=== PATIENT | male | born 1965 | race Caucasian/White ===

== ENCOUNTER 2020-02-17 23:35 | Emergency (ER) | payer MEDICAID ==
[~2020-02-17] VITALS: Ht 188 cm; Wt 113.4 kg
--- NOTE | 2020-02-17 23:39 | NUR ---
PT [facility] BLS. TAKEN TO BED 3
[2020-02-17 23:46] VITALS: BP 124/70
--- NOTE | 2020-02-17 23:51 | NUR ---
Dr. Tsang examining patient.
--- NOTE | 2020-02-17 23:55 | NUR ---
53 Y/O MALE BIBA FOR C/O BILAT LEG FOOTE "SINCE 4PM" PT STATES PAIN 01/20. PT STATES "RAN OUT OF PAIN MEDICATION." SWELLING/EDEMA NOTED TO BILAT LEGS. MEDHX: CVA, CO, DIABETES. NKA
--- NOTE | 2020-02-18 00:05 | NUR ---
LAB AT BEDSIDE
[2020-02-18 00:19] LABS: EOSINOPHILS # (AUTO) 0.1 K/uL (0-0.4); EOSINOPHILS % (AUTO) 2.6 % (0.0-4.0); HEMATOCRIT 38.7 % (36-52); LYMPHOCYTES # (AUTO) 1.7 K/uL (2.0-11.5); LYMPHOCYTES % (AUTO) 37.7 % (20.5-51.1); MEAN CORPUSCULAR HEMOGLOBIN 30 pg (27-31); MEAN CORPUSCULAR HGB CONC 34 g/dL (33-37); MEAN CORPUSCULAR VOLUME 89.5 fL (80-94); MONOCYTES # (AUTO) 0.4 K/uL (0.8-1.0); MONOCYTES % (AUTO) 7.8 % (1.7-9.3); NEUTROPHILS # (AUTO) 2.3 K/uL (1.8-7.7); NEUTROPHILS % (AUTO) 50.9 % (42.2-75.2); PLATELET COUNT (AUTO) 144 K/uL (140-450); RED BLOOD CELL COUNT(AUTO) 4.32 MIL/uL (4.20-6.10); RED CELL DISTRIBUTION WIDTH 17.6 % (11.6-13.7); WHITE BLOOD COUNT (AUTO) 4.5 K/uL (4.8-10.8)
[2020-02-18 00:19] LABS: APPEARANCE,URINE CLEAR (CLEAR); BILIRUBIN,URINE NEGATIVE (NEGATIVE); BLOOD, URINE NEGATIVE (NEGATIVE); COLOR,URINE YELLOW (YELLOW); LEUKOCYTE ESTERASE ,URINE NEGATIVE (NEGATIVE); NITRITE, URINE NEGATIVE (NEGATIVE); UGLUCOSE 3+ (NEGATIVE)
[2020-02-18 00:29] LABS: ANION GAP 16.4 (8-16); CARBON DIOXIDE 24.6 mmol/L (21-32); CREATININE 0.9 mg/dL (0.6-1.3)
[2020-02-18 00:30] LABS: BARBITURATE, URINE NEGATIVE ng/ml (NEG <=200); BENZODIAZEPINE, URINE POSITIVE ng/mL (NEG <=200); CANNABINOID, URINE POSITIVE ng/mL (NEG <=50); COCAINE, URINE NEGATIVE ng/mL (NEG <=300); OPIATE, URINE NEGATIVE ng/mL (NEG <=2000); PHENCYCLIDINE SCREEN,URINE NEGATIVE ng/mL (NEG <=25)
[2020-02-18 00:36] LABS: ALBUMIN 3.2 g/dL (3.4-5.0); TOTAL BILIRUBIN 0.6 mg/dL (0.0-1.0)
--- NOTE | 2020-02-18 01:08 | NUR ---
Ultrasound at bedside.
--- NOTE | 2020-02-18 02:50 | NUR ---
PT REQUESTING FOR WATER, PER ERMD OKAY TO GIVE. WATER PROVIDED. PT TOLERATED WELL.
--- NOTE | 2020-02-18 03:00 | NUR ---
PT STATING HE HAS BEEN ON A PREVIOUS 72 HR HOLD AND IS SUICIDAL. ERMD MADE AWARE.
--- NOTE | 2020-02-18 03:10 | NUR ---
TELEPSYCH INITIATED PER DR. ALCAZAR
--- NOTE | 2020-02-18 03:27 | NUR ---
TELEPSYCH DOCTOR SPEAKING WITH PATIENT VIA REMOTE COMMUNICATION
--- NOTE | 2020-02-18 03:45 | NUR ---
TELEPSYCH DOCTOR STATED TO DO A REASSESSMENT IN THE AM DUE TO HIGH ALCOHOL LEVEL. ERMD MADE AWARE.
--- NOTE | 2020-02-18 04:47 | NUR ---
Dr. Tsang re-examining patient.
--- NOTE | 2020-02-18 05:00 | NUR ---
pt stated "I want to go now and back to [place]" ermd at bedside.
--- NOTE | 2020-02-18 05:46 | NUR ---
spoke with Dr. Tsang waiting for blood alcohol content to decrease from time drawn. expected time for level to decrease at 0800.
[2020-02-18 06:22] VITALS: BP 118/70
--- NOTE | 2020-02-18 06:22 | NUR ---
Patient discharged with v/s stable. Written and verbal after care instructions given and explained. Patient verbalized understanding. Ambulatory with steady gait. All questions addressed prior to discharge. Advised to follow up with PMD.
== END 2020-02-18 06:22 | disposition home or self-care (01) ==
LOC: EDBD 23:35 → MED 23:35
DX: M79.605 Pain in left leg (principal); M79.604 Pain in right leg; F10.129 Alcohol abuse with intoxication, unspecified; Y90.9 Presence of alcohol in blood, level not specified
CPT/HCPCS: 36415; 80053; 80305; 81003; 82550; 84484; 85025; 93005; 93970; 99285; G0482; Q0092